=== PATIENT | male | born 1950 | race Caucasian/White ===

== ENCOUNTER 2023-03-01 05:44 | Emergency (ER) | payer MEDICARE, MEDICAID ==
[~2023-03-01] VITALS: Ht 165.1 cm; Wt 60.0 kg
[~2023-03-01 05:44] MED LIST: AMLO10TA4 PO; ASPI-1497 PO; DORZ10DR32 EACHEYE; DOXA4TAB3 PO; FURO-151 PO; LEVO75TA7 MT; LEVO75TA7 PO; LOSA25TA26 PO; METO25TA6 PO; SIMV10TA97 PO; XALAO EACHEYE
[2023-03-01 05:47] VITALS: O2SAT 98
[2023-03-01] MEDS ORDERED: ASPIRIN 81MG TABLET PO ONE (06:00)
[2023-03-01] MEDS ORDERED: NITROGLYCERIN OINT 1GM/INCH UDPKT TD ONE (06:00)
[2023-03-01 06:34] LABS: HEMATOCRIT. 30.5 % (42.0-52.0); HEMOGLOBIN. 10.4 g/dL (14.0-18.0); MEAN CORPUSCULAR HEMOGLOBIN 31.6 pg (28.0-32.0); MEAN CORPUSCULAR HGB CONC 34.1 g/dL (31.0-37.0); MEAN CORPUSCULAR VOLUME 92.6 fL (80.0-94.0); PLATELET 109 x1000/uL (130-400); RED BLOOD CELL COUNT 3.29 mill/uL (4.7-6.1); RED CELL DISTRIBUTION WIDTH 17.1 % (11.6-14.6); WHITE BLOOD COUNT 5.3 x1000/uL (4.5-11.0)
[2023-03-01 06:40] LABS: DIFFERENTIAL COMMENT 1
[2023-03-01 06:50] LABS: ALANINE AMINOTRANSFERASE 20 IU/L (10-49); ALBUMIN 4.2 g/dL (3.2-4.8); ASPARTATE AMINOTRANSFERASE 20 IU/L (<34); BILIRUBIN TOTAL 0.7 mg/dL (0.1-1.0); CALCIUM 9.3 mg/dL (8.7-10.4); CARBON DIOXIDE 29 mEq/L (21-32); CHLORIDE 97 mEq/L (98-107); CREATININE 3.1 mg/dL (0.6-1.3); GLUCOSE 147 mg/dL (70-105); POTASSIUM 3.7 mEq/L (3.5-5.1); PROTEIN TOTAL 6.8 g/dL (6.0-8.3); SODIUM 135 mEq/L (136-145); TROPONIN I HIGH SENSITIVITY 42 ng/L (3.0-53); UREA NITROGEN BLOOD 30 mg/dL (9-23)
[2023-03-01 07:22] LABS: PLATELET ESTIMATE NORMAL
[2023-03-01 08:57] LABS: TROPONIN I HIGH SENSITIVITY 38 ng/L (3.0-53)
[2023-03-01] MEDS ORDERED: LABETALOL 5MG/ML SYR 20 MG/4 ML SYRINGE IV ONE (13:30)
[2023-03-01 14:40] VITALS: BP 157/66; PULSE 59; RESP 12; TEMP 98.2
== END 2023-03-01 14:53 | disposition short-term general hospital (02) ==
LOC: ER 05:44
DX: R07.89 Other chest pain (principal); E11.9 Type 2 diabetes mellitus without complications; I10 Essential (primary) hypertension; E78.00 Pure hypercholesterolemia, unspecified; Z79.899 Other long term (current) drug therapy; Z86.39 Personal history of other endocrine, nutritional and metabolic disease
CPT/HCPCS: 99285; 96374; 71045; 80053; 83880; 83690; 85025; 84484; 36415; 93005; J3490

== ENCOUNTER 2023-11-01 08:41 | Emergency (ER) | payer MEDICARE, MEDICAID ==
[~2023-11-01] VITALS: Ht 167.6 cm; Wt 46.0 kg
[2023-11-01 08:44] VITALS: O2SAT 98
[2023-11-01 09:09] VITALS: TEMP 97.6
[2023-11-01 13:31] VITALS: BP 138/63; PULSE 73; RESP 12
== END 2023-11-01 13:32 | disposition home or self-care (01) ==
LOC: ER 08:41
DX: T82.838A Hemorrhage due to vascular prosthetic devices, implants and grafts, initial encounter (principal); E11.9 Type 2 diabetes mellitus without complications; E78.00 Pure hypercholesterolemia, unspecified; I10 Essential (primary) hypertension; E03.9 Hypothyroidism, unspecified; Z79.899 Other long term (current) drug therapy; X58.XXXA Exposure to other specified factors, initial encounter
CPT/HCPCS: 99283